=== PATIENT | male | born 1970 | race Caucasian/White ===

== ENCOUNTER 2023-07-30 17:35 | Emergency (ER) | payer OTHER, SELFPAY ==
[2023-07-30 17:36] VITALS: BP 123/85; PULSE 47; RESP 12; TEMP 37.2; O2SAT 100; BMI 26.3
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
[2023-07-30] MEDS: Ondansetron 4 MG/2 ML Vial IV (18:01)
[2023-07-30] MEDS: Morphine 4 MG/ML Syringe IV (18:02)
[2023-07-30] MEDS: Diphth,Pertuss(Acell),Tet Vac 0.5 ML Vial IM (18:09)
--- NOTE | 2023-07-30 18:31 | ED.RN ---
called supervisor [employer] for place of employment sandee. Kylee [phone]. kylee confirmed drug screen is required, f/u with [facility]. corporate care calledwillam to come in
[2023-07-30] MEDS: BACITRACIN/POLYMYXIN B 15 GM Tube 1 APPLIC TOPICAL (18:53)
== END 2023-07-30 20:50 | disposition home or self-care (01) ==
LOC: ED 18:30
PROVIDERS: Emergency Provider Emergency Medicine; Visit Provider Emergency Medicine
DX: T22.131A Burn of first degree of right upper arm, initial encounter (principal); T22.132A Burn of first degree of left upper arm, initial encounter; T21.12XA Burn of first degree of abdominal wall, initial encounter; X58.XXXA Exposure to other specified factors, initial encounter
CPT/HCPCS: 90715; 96374; 96375; 99283; A4216; J2405

== ENCOUNTER → 2023-12-24 | Outpatient (CLI) | payer OTHER, SELFPAY ==
[2023-12-24 12:12] LABS: Absolute Lymphocyte Count 2.05 X10^3/uL (0.83-4.51); Absolute Neutrophil Count 4.3 X10^3/uL (2.0-7.7); Basophil# 0.04 X10^3/uL; Basophil% 0.6 % (0-1); Eosinophil# 0.11 X10^3/uL; Eosinophils% 1.6 % (0-5); Hematocrit 50.9 % (40-54); Hemoglobin 16.7 g/dL (13.0-16.5); Lymphocyte # 2.05 X10^3/ul (0.83-4.51); Lymphocyte % 28.9 % (19-41); Mean Corp Hgb Conc 32.8 g/dL (32-36); Mean Corpuscular Hgb 30.4 pg (27.0-32.0); Mean Corpuscular Volume 92.7 fL (80-94); Mean Platelet Vol. 10.3 fl (6.2-12.0); Monocyte# 0.54 X10^3/uL; Monocyte% 7.6 % (0-10); NRBC Flagged by Analyzer 0 % (0-5); Neutrophil # 4.33 X10^3/uL (2.7-7.7); Platelet Count 334 K/mm3 (150-450); RBC Distribution Width CV 13.1 % (11.6-14.6); RBC Distribution Width SD 44.8 fl (35.1-43.9); Red Blood Count 5.49 M/mm3 (4.6-6.2); White Blood Count 7.1 K/mm3 (4.4-11.0)
[2023-12-24 13:13] LABS: AST(SGOT) 17 U/L (15-37); Alanine Aminotransfer ALT/SGPT 25 U/L (16-61); Albumin, Serum 3.6 g/dL (3.2-5.0); Alkaline Phosphatase 63 U/L (45-117); Anion Gap 6 (5-15); BUN 14 mg/dL (7-18); BUN/Creat Ratio 14.5 RATIO (10-20); Calcium,Total 8.8 mg/dL (8.5-10.1); Chloride 106 mmol/L (98-107); Cholesterol 160 mg/dL (200); Creatinine, Serum 0.96 mg/dL (0.70-1.30); EST Glomerular Filtration Rate 87 mL/min (>60); Est Glom Filt Rate - Afr Amer 105 mL/min (>60); Globulin 3.6 g/dL (2.2-4.2); Glucose 88 mg/dL (74-106); High Density Lipoprotein 49 mg/dL; PSA,Total - Annual Screen 1.25 ng/mL (0.00-4.00); Potassium 4.2 mmol/L (3.5-5.1); Protein, Total 7.2 g/dL (6.4-8.2); Sodium Level 140 mmol/L (136-145); Triglycerides 90 mg/dL; Very Low Density Lipoprotein 18 mg/dL (5-40)
== END | disposition home or self-care (01) ==
LOC: BFHLAB 08:17
PROVIDERS: PCP Nurse Practitioner Family; Referring Provider Nurse Practitioner Family; Visit Provider Nurse Practitioner Family
DX: Z00.01 Encounter for general adult medical examination with abnormal findings (principal); Z12.5 Encounter for screening for malignant neoplasm of prostate
CPT/HCPCS: 36415; 80053; 80061; 84153; 85025; G0103

== ENCOUNTER → 2023-12-31 | Outpatient (CLI) | payer OTHER, SELFPAY ==
--- NOTE | 2023-12-31 09:58 | MRI_ITS ---
STUDY: MRI BRAIN WITH AND WITHOUT CONTRAST (ATTENTION INTERNAL AUDITORY CANALS - I.A.C.''s) REASON FOR EXAM: Male, 53 years old. SUDDEN HEARING LOSS LEFT EAR; ATTN IAC TECHNIQUE: Standardized multiplanar fat and water weighted pulse sequences were obtained. ml of 19ml clariscan contrast material was administered intravenously for the contrast portion of the examination. COMPARISON: None. FINDINGS: Internal auditory canal findings: A large 3.8 x 3.61 cm intensely enhancing heterogeneous extra-axial mass is present at the left cerebellar pontine angle with extension into the IAC either representing a meningioma with a dural tail or a large vestibular schwannoma. Mass effect on the cerebellar pontine parenchyma with slight displacement to the right as well as effacement of the fourth ventricle is present. There is also mild edema in the anterior aspect of the left cerebellar lobe which is due to mass effect from the posterior aspect of the CPA angle mass. There is no infiltration of the mass into the underlying parenchyma. The right IAC and nerve roots are normal. Mild hydrocephalus is present with a band of transependymal edema around the lateral ventricles. Some chronic ischemic appearing signal and mild focal volume loss is present in the left occipital lobe directly adjacent to the more of the ventricle as well. Normal bilateral temporal bones. Normal bilateral cochlea, vestibules and semicircular canals. No mastoid air cell opacification is present. No cerebellar pontine angle mass or cyst is seen. There is no demonstrated lesions of the cavernous sinus. No nodularity or abnormal enhancement is seen in the 7th or 8th cranial nerves within IACs. No demonstrated Mondini''s malformation. BRAIN FINDINGS: There is disproportionate ventricular enlargement with prominence of the anterior horns and temporal tips of the bilateral lateral ventricles. There is confluent periventricular hyperintensity cloaking the lateral ventricles. There is thinning with bowing of the corpus callosum. There is moderate enlargement of the third ventricle. The findings are highly suggestive of normal pressure hydrocephalus (NPH). There are a limited number of small white matter hyperintensities, distributed throughout the deep white matter tracts of the cerebral hemispheres, consistent with mild chronic white matter ischemic changes. No hydrocephalus or midline shift is present. There are no visualized ring-enhancing lesions of the brain parenchyma or abnormal thickening or enhancement of the meninges or dura. Normal bilateral basal ganglia. Normal thalami. Normal flow voids within the major intracranial circulation suggesting patency by spin echo criteria. Normal venous enhancement. There is no enhancing intra-axial or extra-axial abnormality. There is no extra-axial fluid accumulation. Normal sella turcica, pituitary gland, infundibular stalk, optic chiasm and hypothalamus. Normal tectal plate and pineal gland. Normal midbrain, ed[place] and medulla. Normal cerebellum. Normal basal cisterns. No demonstrated orbital abnormality, within the constraints of a routine brain study. There is mucoperiosteal inflammatory disease of the paranasal sinuses consistent with mild chronic sinusitis. Normal calvarium and skull base. Normal visualized soft tissue structures. Normal visualized upper cervical spine. MRI/Brain W/WO Contrast IMPRESSION: 1. A large 3.80 x 3.61 cm intensely enhancing heterogeneous extra-axial mass is present at the left cerebellar pontine angle with extension into the IAC either representing a meningioma with a dural tail or a large vestibular schwannoma. 2. Mass effect on the cerebellar pontine parenchyma with slight displacement to the right as well as effacement of the fourth ventricle is present. There is also mild edema in the anterior aspect of the left cerebellar lobe which is due to mass effect from the posterior aspect of the CPA angle mass. There is no infiltration of the mass into the underlying parenchyma. 3. The right IAC and nerve roots are normal. 4. Mild hydrocephalus is present with a band of transependymal edema around the lateral ventricles. Some chronic ischemic appearing signal and mild focal volume loss is present in the left occipital lobe directly adjacent to the more of the ventricle as well. Electronically Signed: Epifanio Zepeda MD at 12:06 EDT ,
== END | disposition home or self-care (01) ==
LOC: MRI 09:50
PROVIDERS: PCP Nurse Practitioner Family; Referring Provider Otolaryngology Otolaryngology/Facial Plastic Surgery; Visit Provider Otolaryngology Otolaryngology/Facial Plastic Surgery
DX: H91.22 Sudden idiopathic hearing loss, left ear (principal)
CPT/HCPCS: 70553; A9575

== ENCOUNTER 2024-04-16 08:30 | Outpatient (RCR) | payer OTHER, SELFPAY ==
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
--- NOTE | 2024-04-02 08:58 | HP.PTREVAL ---
Re-Evaluation Intro: LAZARO DENNISON, It has been my pleasure to treat ANTHONY MARCANO over the last 3 visits for Vestibular schwannoma. Please see the progress note below for an update on the physical therapy plan of care! Subjective Subjective: bend and look up is not a problem anymore. Tandem stance is tough. 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 has not tried riding a bike yet. Activitiy is normal outside of riding a bike., Thinks he could go back to work. Doesn't believe he will have any trouble with it. Driving car without a problem. No dizzyness or lightheadedness. To doctor Sunday. Is on 6th week off. Objective Objective/Function: getting to tandem adn tandem walking still not easy but not unsafe. Unable to create dizzyness tody with any head position changes. FGA is improved and only missing point for tandem walk but, again, not unsafe just challenging. Safe and active at home. Plan Plan Plan: f/u two weeks to check tandem stance 30 and tandem walk 15 steps and d/c if still doing well and back to work without issues. to doctor next Sunday for return to work. Balance/Gait/Functional tests Balance/Special Test Scores Functional Gait Assessment Score: 29 % Disability: 3.3400 CATSIB Score (Max score 120 seconds): 100 Dizziness Score: 28 Goals Goals Goal 1:: 30/30 FGA to minimize fall risk and max funciton Goal Time Frame: 6-8 Weeks Goal Progress: Progressing Goal 2:: Dizzyness abolished Goal Time Frame: 6-8 Weeks Goal Progress: Goal Met Goal 3:: reeder to return to motorcycle riding Goal Time Frame: 6-8 Weeks Goal Progress: Goal Met Goal 4:: Pt feel 100% better activities and ready back to work Goal Time Frame: 6-8 Weeks Goal Progress: 90% Anticipated Interventions Anticipated Interventions Patient/Client Instruction: Educate patient on: Condition and Risk Factors For the Purpose of:: To improve muscle performance and motor function, To increase tolerance to activity/condition/position and To improve ability of physical actions for home/community/work/leisure Therapeutic Exercise to Include: Balance training Comment: dizzy For the Purpose of:: To improve muscle performance and motor function and To increase tolerance to activity/condition/position Re-Evaluation Ending Re-evaluation ending: Please do not hesitate to contact me at [phone] by phone or if you have questions or concerns regarding this new plan of care! Sincerely, Humberto Chang, DPT, OCS, CSCS
--- NOTE | 2024-04-16 08:40 | HP.PTDCSUM_ITS ---
Discharge Summary D/C summary: It has been my pleasure to treat ANTHONY MARCANO referred by LAZARO DENNISON, with the diagnosis of Vestibular schwannoma for a total of 4 visit(s). Discharge Date: 04/16/24 Please see the following information for a summary of their discharge status. Subjective Subjective: back to work and it is going well. Work is normal. Home is normal. Exercises frustrating but not dizzy. 1005 back to normal. No doctor f/u. Overall Improvement % Improvement: 100 Objective Objective/Function: no problems with VOR ambulation or any items on balance test, no dizzyness with VOR. overall doing well. Goals Goal 1:: FGA to minimize fall risk and max funciton Goal Progress: Goal Met Goal 2:: Dizzyness abolished Goal Progress: Goal Met Goal 3:: reeder to return to motorcycle riding Goal Progress: Goal Met Goal 4:: Pt feel 100% better activities and ready back to work Goal Progress: 100% Plan Plan: d/c D/C Information d/c sentence: If there are questions or concerns regarding this patient's physical therapy, [address] feel free to call me at [phone]. Thank you for the referral of this patient. Sincerely, Humberto Chang, DPT, OCS, CSCS Balance/Gait/Functional tests Balance/Special Test Scores Functional Gait Assessment Score: 30 % Disability: 0 CATSIB Score (Max score 120 seconds): 100 Dizziness Score: 2 Improvement % Improvement: 100
== END 2024-04-16 13:22 | disposition home or self-care (01) ==
LOC: PT 08:30
PROVIDERS: PCP Nurse Practitioner Family
DX: D33.9 Benign neoplasm of central nervous system, unspecified (principal)
CPT/HCPCS: 97110; 97161; 97530